=== PATIENT | male | born 1995 | race Caucasian/White ===

== ENCOUNTER 2024-04-02 18:22 | Observation (INO) | payer BC ==
[2024-04-02 19:08] LABS: BASOPHILS ABSOLUTE AUTO 0.1 K/mm3 (0.0-0.2); BASOPHILS PERCENT AUTO 0.4 % (0.0-1.0); EOSINOPHILS ABSOLUTE AUTO 0.1 K/mm3 (0.0-0.4); EOSINOPHILS PERCENT AUTO 0.9 % (0.0-6.0); HEMATOCRIT 43.8 % (42.0-52.0); HEMOGLOBIN 14.6 gm/dl (14.0-18.0); IMMATURE GRAN ABSOLUTE AUTO 0.02 K/mm3 (0.00-0.05); IMMATURE GRAN PERCENT AUTO 0.2 % (0.0-0.4); LYMPHOCYTES ABSOLUTE AUTO 3.1 K/mm3 (1.0-4.8); LYMPHOCYTES PERCENT AUTO 26.8 % (24.0-44.0); MEAN CORPUSCULAR HEMOGLOBIN 26.4 pg (28.0-32.0); MEAN CORPUSCULAR HGB CONC 33.3 g/dl (32.0-36.0); MEAN CORPUSCULAR VOLUME 79.3 fl (83.0-99.0); MEAN PLATELET VOLUME 9.1 fl (9.4-12.4); MONOCYTES ABSOLUTE AUTO 0.8 K/mm3 (0.0-0.8); MONOCYTES PERCENT AUTO 7.1 % (0.0-8.0); NEUTROPHILS ABSOLUTE AUTO 7.5 K/mm3 (1.8-7.7); NEUTROPHILS PERCENT AUTO 64.6 % (41.0-71.0); PLATELET COUNT,PLT 426 K/mm3 (150-400); RED BLOOD CELL COUNT 5.52 M/mm3 (4.52-5.90); WHITE BLOOD CELL COUNT,WBC 11.63 K/mm3 (3.9-11.3)
[2024-04-02] MEDS: amLODIPine 5 MG Tab PO ONE (19:31)
[2024-04-02 19:32] LABS: A/G RATIO 1.1 (1-2); ANION GAP 14.7 (5-15); BILIRUBIN TOTAL 0.3 mg/dL (0.2-1.0); CALCIUM 8.7 mg/dL (8.5-10.1); EST CRCL DRUG DOSING (CG) 118.18 mL/min; POTASSIUM,K 2.7 mEq/L (3.5-5.1); PROTEIN TOTAL,TP 7.8 g/dl (6.4-8.2)
[2024-04-02] MEDS: hydrOXYzine HCl 50 MG Tab PO STA (19:32)
[2024-04-02] MEDS: Potassium Chloride 10 MEQ in Premix Bag 1 BAG IV SCH (20:40)
[2024-04-02] MEDS: Sodium Chloride 0.9% 500 ML ONE (20:41)
[2024-04-02] MEDS ORDERED: hydrALAZINE 25 MG Tab PO PRN (23:09)
[2024-04-02] MEDS: Sodium Chloride 0.9% 1,000 ML IV SCH (23:21)
[2024-04-03 05:23] LABS: ANION GAP 13.2 (5-15); BUN/CREATININE RATIO 8.8 (14-18); CALCIUM 8.3 mg/dL (8.5-10.1); CREATININE 0.8 mg/dL (0.7-1.3); EST CRCL DRUG DOSING (CG) 147.72 mL/min; POTASSIUM,K 3.2 mEq/L (3.5-5.1)
[2024-04-03] MEDS: Potassium Chloride 20 MEQ Tab.ER PO ONE (08:41)
[2024-04-03] MEDS: Lisinopril 10 MG Tab PO ONE (09:48)
[2024-04-03] MEDS: Cephalexin 500 MG Cap PO ONE (09:49)
== END 2024-04-03 11:17 | disposition home or self-care (01) ==
LOC: JD.ED 18:22 → JD.MS 19:40
PROVIDERS: ADMIT Internal Medicine; ATTEND Internal Medicine
DX: E87.6 Hypokalemia (principal); F41.9 Anxiety disorder, unspecified; I10 Essential (primary) hypertension; L03.115 Cellulitis of right lower limb; F17.210 Nicotine dependence, cigarettes, uncomplicated; Z79.899 Other long term (current) drug therapy
CPT/HCPCS: 36415; 71045; 80048; 80053; 83735; 84484; 85025; 93005; A9270; J3480; J7030; J7040